=== PATIENT | female | born 1960 | race Caucasian/White ===

== ENCOUNTER 2022-03-16 20:50 | Outpatient (REF) | payer MEDICAID, SELFPAY | END 2022-03-16 20:51 | disposition home or self-care (01) | LOC: LBN 20:50 | PROVIDERS: Visit Provider Physician Assistant Medical | DX: H00.031 Abscess of right upper eyelid (principal); H00.034 Abscess of left upper eyelid | CPT/HCPCS: 87077; 87070; 87186; 87205 ==

== ENCOUNTER 2022-03-17 21:52 | Emergency (ER) | payer MEDICAID, SELFPAY ==
[2022-03-17 21:54] VITALS: BP 133/72; PULSE 88; RESP 18; TEMP 36.3; O2SAT 100
--- NOTE | 2022-03-17 22:00 | DI.CT_ITS ---
Exam(s) CT ORBITS WO EXAM: CT ORBITS WO CLINICAL HISTORY: swelling around eyes TECHNIQUE: COMPARISON: No exams were available for comparison FINDINGS: CT examination the orbital facial region was performed without contrast administration. Visualized p ortions of the brain are unremarkable. Paranasal sinuses are clear, frontal sinuses are absent. The re is soft tissue swelling in the soft tissues of the pre orbital and supraorbital region. There is no intraconal fat edema. The globes appear intact. Extraocular musculature and optic nerves appear normal. IMPRESSION: No evidence of acute intra orbital process. No evidence of abscess. Subcutaneous edema/swelling of the supraorbital and orbital region. RADIATION DOSE DELIVERED: 243.9mGy.cm Total DLP !Error CTDIvol RADIATION OPTIMIZATION: All CT scans at this facility use at least one of these dose optimization te chniques: automated exposure control; mA and/or kV adjustment per patient size (includes targeted exa ms where dose is matched to clinical indication); or iterative reconstruction.
--- NOTE | 2022-03-17 22:04 | ED.GENADUL_ITS ---
Discharge Plan Disposition Patient Disposition: HOME Condition: Stable Discharge Details Clinical Impression: Periorbital swelling Primary Care Provider: Unknown,Unknown ED Provider: Tim Castaneda Home Meds and New Rx's Prescriptions: New prednisone 20 mg tablet 60 mg PO DAILY 4 Days Qty: 12 0RF Continued omeprazole 40 mg Capsule,Delayed Release(Dr/Ec) 40 mg PO DAILY oxybutynin chloride 5 mg Tablet 5 mg PO TID gabapentin 400 mg Tablet 400 mg PO TID duloxetine 40 mg Capsule, Delayed Rel Sprinkle 50 mg PO DAILY Discharge Instructions Additional Instructions: continue to take the antibiotics and start taking the prednisone follow up as scheduled with your primary care provider on Monday if you feel more ill, have fevers or changes in vision return to the emergency department Medical Decision Making 61 yo female comes inwith 5 days of swelling around the eyes. She went to urgent care on Monday and had bactrim and cefdinir prescribed and despite this still has swelling. She states the swelling hasn't worsened and denies any changes in vision, it is only aroun the eyes she has swelling. She has normal conjunctiva, perrl, eomi. She does have swellin around both orbits with very faint erythema that blanches, not warm to touch or tender. It appears on exam to be contact dermatitis and less likely infectious etiology, will obtain cbc, cmp and ct to further evaluate pt's labs show wbc of 14 otherwise no significant findings. CT shows no abscess just the periorbital swelling noted on exam. Her vision is 20/70 in both eyes individually and she states she is waiting for her glasses she ordered. Discussed admission for IV antibiotics but she declines and wants to try taking the bactrim and cefdinir along with prednisone which I feel is reasonable given CT and exam show no evidence of orbital cellulitis. She has an appointment Monday with her pcp and she will return if she's not improving or worsens. Differential Diagnosis Differential Diagnosis: cellulitis, orbital cellulitis, contact dermatitis Imaging Data Radiologic Study: Attestation: I personally reviewed and interpreted this imaging study as follows: Imaging: CT Scan Radiologist's impression: IMPRESSION: Soft tissue swelling over the lower forehead and around the orbits which may be related preseptal cellulitis. No abscess seen. Lab Data Lab results reviewed: Yes I reviewed the patient's lab results. HPI General Mode of arrival: EMS . Date/Time Provider Initiated Documentation: 03/17/22 21:58 . Limitations to Documentation: no limitations . Information obtained by: patient . History of Present Illness 61 year old F presents to the emergency department with the chief complaint of swelling aroud eyes, described as moderate, and is localized to the eyes. Patient reports no radiation. Patient started experiencing this day(s) (5) and it has been constant. No relieving factors improve symptom(s), No exacerbating factors reported . Patient notes no other symptoms.. Related Data Home Medications Medication Instructions Recorded Confirmed duloxetine 40 mg capsule,delayed 50 mg PO DAILY 03/17/22 03/17/22 release sprinkle gabapentin 400 mg tablet 400 mg PO TID 03/17/22 03/17/22 omeprazole 40 mg capsule,delayed 40 mg PO DAILY 03/17/22 03/17/22 release oxybutynin chloride 5 mg tablet 5 mg PO TID 03/17/22 03/17/22 prednisone 20 mg tablet 60 mg PO DAILY 4 days #12 tabs 03/17/22 Previous Rx's Medication Instructions Recorded prednisone 20 mg tablet 60 mg PO DAILY 4 days #12 tabs 03/17/22 Allergies Allergy/AdvReac Type Severity Reaction Status Date / Time No Known Allergies Allergy Unverified 03/17/22 21:57 General Stated Complaint: EyeProblem ISABEL: 4 Review of Systems All systems reviewed & are unremarkable except as noted in HPI and below Constitutional Constitutional: Denies chills, Denies fever(s) and Denies weakness Eyes Eyes: Denies loss of vision Cardiovascular Cardiovascular: Denies chest pain and Denies dyspnea Respiratory Respiratory: Denies cough and Denies dyspnea Gastrointestinal Gastrointestinal: Denies abdominal pain, Denies nausea and Denies vomiting Genitourinary Genitourinary: Denies dysuria Musculoskeletal Musculoskeletal: Denies joint swelling Neurologic Neurologic: Denies loss of vision and Denies weakness PFSH All Active Problems (Updated 03/17/22 @ 23:32 by Tim Castaneda MD) Periorbital swelling (Acute) Tobacco abuse (Chronic) Hoarseness of voice (Chronic) Lesion of vocal cord (Chronic) Social History Smoking/Tobacco Use Status: Current every day Smoking risk assessment performed?: Yes Alcohol Intake: never Drug use: Never Substance use type: does not use Exam Const General: no acute distress Orientation: alert HENMT Head: normal to inspection Ears: external ears normal General nose exam: external nose normal Mouth: moist mucous membranes Eyes Alignment and Position: alignment normal Conjunctivae: conjunctivae normal Neck Neck: normal visual inspection Resp Effort & Inspection: normal respiratory effort and able to speak in complete sentences Cardio Rate: regular rate Skin General skin exam: no rashes or lesions noted Neuro General: patient alert and patient oriented x3 Extrem General: normal to inspection Psych Mental Status: mental status grossly normal Course Vital Signs Vital signs: Vital Signs Temperature 36.3 C L 03/17/22 21:54 Pulse 88 03/17/22 21:54 Respiratory Rate 18 03/17/22 21:54 Blood Pressure 133/72 03/17/22 21:54 Pulse Oximetry 100 03/17/22 21:54 Temperature 36.3 C L 03/17/22 21:54 Temperature Source Temporal Artery Scan 03/17/22 21:54 Pulse 88 03/17/22 21:54 Respiratory Rate 18 03/17/22 21:54 Respiratory Effort 03/17/22 22:02 Blood Pressure 133/72 03/17/22 21:54 Blood Pressure Position Sitting 03/17/22 21:54 Pulse Oximetry 100 03/17/22 21:54 Pain Level 0 03/17/22 21:54
[2022-03-17 22:14] LABS: Abs Immature Grans 0.06 10^3/uL (0.0-0.06); HGB 13.3 g/dL (11.2-15.7); MCH 25.7 pg (27.0-33.0); MCHC 32.4 % (32.0-36.0); MCV 79 fL (80-95); MPV 9.2 fL (8.0-11.0); Platelet Count 341 10^3/uL (130-400); RBC 5.17 10^6/uL (3.93-5.22); RDW 13.4 % (11.7-14.6); RDW-SD 38.5 fL; WBC 14.67 10^3/uL (4.4-10.8)
[2022-03-17] MEDS: predniSONE 20 MG TAB 60 MG PO (22:15)
[2022-03-17 22:26] LABS: ALT 34 U/L (14-59); AST 41 U/L (15-37); Albumin 3.5 g/dL (3.4-5.0); Alkaline Phosphatase 182 U/L (46-116); Anion Gap 7.9 mmol/L (3-11); BUN 9 mg/dL (7-18); Bilirubin, Total 0.3 mg/dL (0.2-1.0); CO2 27.1 mmol/L (21.0-32.0); CREATININE 0.9 mg/dL (0.55-1.02); Chloride 101 mmol/L (98-107); Glucose 113 mg/dL (74-106); Potassium 4.5 mmol/L (3.5-5.1); Sodium 136 mmol/L (136-145); Total Protein 7.8 g/dL (6.4-8.2)
[2022-03-17 22:33] LABS: Absolute Eosinophil Count 0.15 10^3/uL (0.0-0.7); Absolute Lymphocyte Count 2.49 10^3/uL (1.2-3.4); Absolute Monocyte Count 1.47 10^3/uL (0.1-0.8); Absolute Neutrophil Count 10.56 10^3/uL (1.2-6.7); Atypical Lymphocytes % 2; Diff Comment Manual Differential
--- NOTE | 2022-03-17 23:12 | DI.VRAD_ITS ---
PROCEDURE INFORMATION: Exam: CT Orbits Without Contrast Exam date and time: 03/17/2022 10:17 PM Age: 61 years old Clinical indication: Other: Swelling around eyes; Additional info: Swelling around eyes, PT states onset 4-5 days prior TECHNIQUE: Imaging protocol: Computed tomography of the orbits without contrast. Radiation optimization: All CT scans at this facility use at least one of these dose optimization techniques: automated exposure control; mA and/or kV adjustment per patient size (includes targeted exams where dose is matched to clinical indication); or iterative reconstruction. COMPARISON: No relevant prior studies available. FINDINGS: Paranasal sinuses: Frontal sinuse is not developed. Rest of the paranasal sinuses are well aerated. Mastoid air cells: Mastoid sinuses are well aerated. Auditory system: Middle ears are well aerated. Orbital cavities: Intraorbital soft tissues are unremarkable. Soft tissues: Soft tissue swelling is seen over the lower forehead and around the orbits. No abscess. Bones/joints: No acute fracture. IMPRESSION: Soft tissue swelling over the lower forehead and around the orbits which may be related preseptal cellulitis. No abscess seen. Dictated and Authenticated by: Pallavi Aguilar MD. Ordering:SOCORRO Dumont MD
[2022-03-17 23:28] VITALS: BP 132/76; PULSE 62; RESP 18; O2SAT 98
--- NOTE | 2022-03-22 08:18 | NUR.NOTE ---
Nursing Note: Patient called asking for results of her CT. Dr. Anaya spoke with patient.
== END 2022-03-17 23:55 | disposition home or self-care (01) ==
PROVIDERS: Emergency Provider Emergency Medicine
DX: H05.223 Edema of bilateral orbit (principal)
CPT/HCPCS: 80053; 99284; 70480; 85025; 99283; J7512

== ENCOUNTER 2022-06-03 12:05 | Emergency (ER) | payer MEDICAID, SELFPAY ==
[2022-06-03 12:15] VITALS: BP 158/95; PULSE 100; RESP 17; TEMP 36.3; O2SAT 97
--- NOTE | 2022-06-03 14:43 | ED.GENADUL_ITS ---
Discharge Plan Disposition Patient Disposition: HOME Condition: Stable Discharge Details Clinical Impression: Housing instability after recent homelessness, Homeless, Anxiety and depression Primary Care Provider: Bernice Barrera ED Provider: Wyatt Tobin Home Meds and New Rx's Prescriptions: Continued omeprazole 40 mg Capsule,Delayed Release(Dr/Ec) 40 mg PO DAILY oxybutynin chloride 5 mg Tablet 5 mg PO TID gabapentin 400 mg Tablet 400 mg PO TID duloxetine 40 mg Capsule, Delayed Rel Sprinkle 50 mg PO DAILY Discharge Instructions Instructions: Anxiety (ED) Referrals: [facility] [Outside] Discharge Data Discharge Date/Time-TO BE ENTERED AT DEPARTURE: 06/03/22 16:09 Medical Decision Making Patient presenting to the emergency department for chief complaint of homelessness and need of psychiatric services. Patient reports this week she was kicked out of the hotel she was living in with her boyfriend. She states that she attempted to stay with family but they were unable to help her and told her she needed a psychiatric evaluation and is presenting to the emergency department. Patient states long ongoing anxiety and depression which he used to see psychiatric services for but has since stopped. Patient denies any homicidal or suicidal ideations, denies any hallucinations denies any medical complaints at this time. Physical exam is unremarkable. We will contact care management and psychiatric services to see what resources we can help patient with but at this time I do not see any risk factors for dispo of discharge. Smart form was utilized and patient does not require any laboratory work-up at this time. Psychiatric services were able to develop a safety plan for patient and assist with patient resuming psychiatric assistance on an outpatient basis. They also agree patient does not meet criteria for admission at this time. Care management did provide patient with information in regards to calling [address] along with economic services to assist with her housing situation. Patient's daughter did call requesting update and patient was agreeable to me speaking with her daughter. After speaking with patient's daughter it does seem like patient has a long ongoing psychiatric history which includes poor decision-making. The supportive state in the let her to be been on multiple housing situations but family has attempted to take guardianship and custody of patient but patient has always been deemed at full capacity for decision-making. I instructed the family that this is continued the case from the emergency department perspective and that patient does not meet criteria for EE or for acute psychiatric admission. Discussed different resources that we are providing the patient along with clear instructions for both the family and the patient to return to the emergency department for any new or significant worsening of condition or further concerns they have. After discussion of diagnosis and plan of care isabelle solano has no further needs, questions, or concerns and states clear understanding to return to the emergency department for any worsening symptoms. This documentation was generated using [employer] dictation system, please disregard any oddities of phrase or misspellings. HPI General Mode of arrival: ambulatory . Date/Time Provider Initiated Documentation: 06/03/22 12:25 . Limitations to Documentation: no limitations . Information obtained by: patient and RN notes reviewed . History of Present Illness 61 year old F presents to the emergency department with the chief complaint of Need of psychiatric services and homelessness, described as similar to prior episodes, Quality is described as other (denies pain), Patient started experiencing this unknown and it has been constant. No relieving factors improve symptom(s), Patient notes no other symptoms.. Patient did receive the following treatments prior to arrival, none Related Data Home Medications Medication Instructions Recorded Confirmed duloxetine 40 mg capsule,delayed 50 mg PO DAILY 03/17/22 03/17/22 release sprinkle gabapentin 400 mg tablet 400 mg PO TID 03/17/22 03/17/22 omeprazole 40 mg capsule,delayed 40 mg PO DAILY 03/17/22 03/17/22 release oxybutynin chloride 5 mg tablet 5 mg PO TID 03/17/22 03/17/22 Allergies Allergy/AdvReac Type Severity Reaction Status Date / Time codeine AdvReac Mild Nausea Unverified 06/03/22 12:25 General Stated Complaint: PsychEval ISABEL: 2 Review of Systems All systems reviewed & are unremarkable except as noted in HPI and below Neurologic Neurologic: Denies confusion and Denies memory loss Psychiatric Psychiatric: Reports anxiety, Denies confusion, Reports depression, Denies auditory hallucinations, Denies hopelessness, Denies memory loss, Reports mood swings, Reports panic attacks, Denies visual hallucinations, Denies hallucinations, Denies tactile hallucinations, Denies homicidal ideation and Denies suicidal ideation PFSH All Active Problems (Updated 06/03/22 @ 14:49 by Wyatt Tobin NP) Housing instability after recent homelessness (Acute) Homeless (Acute) Anxiety and depression (Chronic) Cystocele (Acute) Grade 2, asymptomatic Tobacco abuse (Chronic) Hoarseness of voice (Chronic) Lesion of vocal cord (Chronic) Family History Other Breast cancer Heart disease Hyperlipidemia Stroke Social History Smoking/Tobacco Use Status: Current every day Smoking risk assessment performed?: Yes Alcohol Intake: never Drug use: Never Substance use type: does not use Do you feel safe at home: Yes Do you feel safe in your relationship?: Yes History History 2 Para 2 Hx # Term Pregnancies 2 Multiple births Hx # Pregnancies Ectopic pregnancies AB induced Hx Number of Living Children 2 AB spontaneous Exam Const General: cooperative Orientation: alert, awake and oriented x3 Limitations: mental status not altered HENMT Head: normal to inspection, normocephalic and atraumatic Ears: hearing grossly normal bilaterally Mouth: moist mucous membranes Eyes General: appearance normal, both eyes and all related structures Pupils: PERRL EOM: EOM intact bilaterally Resp Effort & Inspection: normal respiratory effort, able to speak in complete sentences and no respiratory distress Auscultation: clear to auscultation bilaterally Cardio Rate: regular rate and not tachycardic Rhythm: regular rhythm Heart Sounds: S1 normal, S2 normal, no click, no gallops, no murmurs and no rubs Neuro General: patient alert, patient awake, patient oriented x3, gait normal, moves all extremities and no focal motor deficits Cognition: normal cognition Speech: speech normal Psych Appearance: grossly normal Mental Status: mental status grossly normal Speech and Movement: speech and movement normal and speech clear Mood: congruent mood Affect: normal affect Attitude: cooperative Thought Process: normal Thought Content: normal, no delusions, no homicidality, no obsessions, no phobia s and suicidality Insight: insight good Judgment: judgment good Course Vital Signs Vital signs: Vital Signs Temperature 36.3 C L 06/03/22 12:15 Pulse 100 H 06/03/22 12:15 Respiratory Rate 17 06/03/22 12:15 Blood Pressure 158/95 H 06/03/22 12:15 Pulse Oximetry 97 06/03/22 12:15 Temperature 36.3 C L 06/03/22 12:15 Temperature Source Temporal Artery Scan 06/03/22 12:15 Pulse 100 H 06/03/22 12:15 Respiratory Rate 17 06/03/22 12:15 Respiratory Effort Non-Labored 06/03/22 14:41 Blood Pressure 158/95 H 06/03/22 12:15 Blood Pressure Position Sitting 06/03/22 12:15 Pulse Oximetry 97 06/03/22 12:15 Oxygen Delivery Method Room Air 06/03/22 12:15 Oxygen Flow Rate 0 06/03/22 12:15 Pain Level 0 06/03/22 12:15
[2022-06-03 15:23] VITALS: BP 142/86; PULSE 80; RESP 17; TEMP 36.7; O2SAT 99
--- NOTE | 2022-06-03 16:18 | PDOC.MHCN ---
Date of service: 06/03/22 Time of Service: 14:00 PHQ-9 Over the last 2 weeks, how often have you been bothered by any of the following problems? 1. Little interest or pleasure in doing things: not at all 2. Feeling down, depressed, or hopeless: nearly every day 3. Trouble falling or staying asleep, or sleeping too much: not at all 4. Feeling tired or having little energy: more than half the days 5. Poor appetite or overeating: not at all 6. Feeling bad about yourself - or that you are a failure or have let yourself and your family down: not at all 7. Trouble concentrating on things, such as reading the newspaper or watching television: nearly every day 8. Moving or speaking so slowly that other people could have noticed? - Or the opposite - being so fidgety or restless that you have been moving around a lot more than usual: several days 9. Thoughts that you would be better off or of hurting yourself in some way: not at all Total score: 9 If you checked off any problems, how difficult have these problems made it for you to do your work, take care of things at home, or get along with other people?: somewhat difficult Source: Developed by Drs. Mushtaq Sanchez, Angelica De Santiago, Lorenzo Best and colleagues, with an educational tricia from [employer] Suicide Severity Rate CSSRS Have you wished you were or wished you could go to sleep and not wake up?: No Have you actually had any thoughts of killing yourself?: No CSSRS3 Have you ever done anything, started to do anything or prepared to do anything to end your life?: No CSSRS4 Was this within the past three months?: No Screening Score Total Score: 0 Screening: Negative Mental Health Emergency Note Release [facility] release signed:: Yes Reason for Visit Client presented to [facility] ED via a family member who stated that she was endorsing SI and needed to go to [facility] to seek inpatient treatment. In the last 2 weeks has the pt presented for ES prior to today?: No Client Information Client is: New Well Housed: No,status: Homeless Non Suicidal Self Injury Current: No History: No Safety Risk/Harm to Self or Others Current Ideation to Harm Self or Others: No Risk: Does risk to harm exist?: No Risk: N/A Duty to warn indicated: No Asssessment/Mental Status Appearance: Disheveled Attitude: Cooperative Behavior: Unremarkable Speech: Soft Affect: Flat Mood: Stressed and Anxious Thought process: Unremarkable Hallucinations: No Delusions: No Attention: Unremarkable Perception: Not impaired Orientation: Fully orientated Memory: Intact Insight: Good Judgement: Good Neurovegetative Symptoms Sleep: No change Appetitie: No change Interests: No change Energy: No change Libido: No change Substance Use: Do you use nicotine?: Yes Have you used substances in the last 7 days?: No Additional Issues: Assaultive/Threatening Behavior: No Medical Concerns: No Client engaged in active self harm w/weapon: No Threatening to run away: No Child reported abuse/neglect: No Voluntarily presenting for services: Yes Domestic violence is a concern: No Extreme Psychosis or extreme behavior is present: No Impression Client does not meet criteria for inpatient treatment at this time. It is this clinicians professional opinion that clients decompensation is due to unstable housing and stress that is being caused by being evicted from the [employer] on 06/02/22. Client denies SI/HI and states that is the would never do anything to hurt herself as it scares her. Resources Reosurces reviewed and given:: [facility] (individual therapy/group therapy/ ES case management. ) Plan/Disposition Recommended Disposition: [facility] Services (individual therapy, group therapy, and ES case managemnt. ) [facility] Services: Therapy. Plan: Client will return to the community on a pro-active safety plan. Client will check-in with [facility] ES daily through 06/08 @ 10a. Client will also call [facility] [employer] and economic services to check on temporary housing. Client also given [facility] and [place] crisis text line to utilize as a resource as well. Person reported agreement to plan: Yes Reports/communication Outcome discussed with: ED/Personnel (Verbal passover with ED attending provider Arturo Tobin. )
== END 2022-06-03 16:09 | disposition home or self-care (01) ==
PROVIDERS: Emergency Provider Nurse Practitioner Family; PCP Nurse Practitioner Family
DX: F32.A Depression, unspecified (principal); F17.200 Nicotine dependence, unspecified, uncomplicated; Z59.819 Housing instability, housed unspecified
CPT/HCPCS: 99285